=== PATIENT | female | born 1990 | race African-American/Black ===

== ENCOUNTER 2018-12-28 11:24 | Emergency (ER) | payer OTHER ==
[~2018-12-28] VITALS: Ht 162.6 cm; Wt 113.9 kg
--- OUTSIDE RECORDS SUMMARY | 2018-12-28 11:26 | XMS REPORT | Clinical Summary ---
Author Author [facility] Address Unknown Phone Unavailable Care Team Providers Care Diamond Selector Name Role Phone Sharpless PCP Allergies No Known Allergies Medications End Date Status Medication Sig Dispensed Refills Start Date Active escitalopram oxalate Take 20 mg by 0 (LEXAPRO) 20 MG tablet mouth daily. Active albuterol HFA (VENTOLIN Inhale 1 puff 0 HFA) 90 mcg/actuation by mouth via inhaler inhaler every 6 (six) hours as needed for Wheezing. Active montelukast (SINGULAIR) Take 10 mg by 0 10 mg tablet mouth nightly. Active ondansetron (ZOFRAN) 4 MG Take 4 mg by 0 11/28/ tablet mouth every 8 7 (eight) hours as needed. Active levocetirizine (XYZAL) 5 Take 1 tablet 0 12/02/201 MG tablet by mouth 7 daily. Active omeprazole (PRILOSEC) 40 Take 40 mg by 0 01/11/201 MG capsule mouth daily. 7 Active hydrOXYzine (ATARAX) 25 Take 1 tablet 0 MG tablet by mouth daily as needed. Active buPROPion (WELLBUTRIN) Take 100 mg 0 100 MG tablet by mouth 2 (two) times daily. Active pantoprazole (PROTONIX) Take 1 tablet 30 tablet 0 40 MG tablet (40 mg total) 7 by mouth daily. Active Problems Problem Noted Date Cholecystitis 02/01/2017 Obstructive apnea 02/01/2017 Leukemoid reaction 02/01/2017 Extreme obesity 05/15/2015 Allergic rhinitis, seasonal 05/15/2015 Family History Medical History Relation Name Comments Hypertension Father Kidney disease Father Diabetes Maternal Grandfather Diabetes Paternal Grandmother Sickle cell anemia Sister Relation Name Status Comments Father Maternal Grandfather Paternal Grandmother Sister Social History Date Tobacco Use Types Packs/Day Years Used Never Smoker Alcohol Use Drinks/Week oz/Week Comments Yes social drinker Sex Assigned at Date Recorded Not on file Industry Job Start Date Occupation Not on file Not on file Not on file Travel End Travel History Travel Start No recent travel history available. Last Filed Vital Signs Not on file Plan of Treatment Not on file Results Not on fileafter 12/27/2017 Insurance Payer Benefit Subscriber ID Type Phone Address Plan / Group [facility] xxxxxxxxxxxxx [phone] [facility] Advance Directives For more information, please contact: [facility] [address] [place] [address] Date Inactivated Comments Code Status Date Activated 02/02/2017 12:53 PM Full Code 02/01/2017 8:51 PM This code status was determined by: Patient 02/01/2017 8:51 PM Full Code 02/01/2017 6:21 AM This code status was determined by: Patient
--- OUTSIDE RECORDS SUMMARY | 2018-12-28 11:27 | XMS REPORT ---
Author Author [facility] Address Unknown Phone Unavailable Care Team Providers Care Superior Court Clerk Name Role Phone BINDU LOPEZ ALEXANDER Unavailable Unavailable JANELL LEMONS Unavailable Unavailable Messi GUEVARA Unavailable Unavailable ELISHA FISHMAN Unavailable Unavailable Payers Payer Name Policy Type Policy Number Effective Date Expiration Date Problems This patient has no known problems. Allergies, Adverse Reactions, Alerts Allergy Name Allergy Type Status Severity Reaction(s) Onset Date Inactive Date Treating Clinician Comments No Known Allergies DA Active U 2018-06-08 00:00:00 No Known Allergies DA Active U 2015-08-15 00:00:00 Medications This patient has no known medications. Results Test Description Test Time Test Comments Text Results Atomic Results Result Comments URINALYSIS W/ MICROSCOPIC 2017-09-17 13:30:00 COLOR (BEAKER) (test nnni=328) Yellow CLARITY (BEAKER) (test pcxp=567) Slightly Cloudy SPECIFIC GRAVITY UA (BEAKER) (test rwxk=197) 1.020 1.001-1.035 PH UA (BEAKER) (test gwaj=474) 7.0 5.0-8.0 PROTEIN UA (BEAKER) (test doxq=859) Negative Negative GLUCOSE UA (BEAKER) (test yulz=484) Negative Negative KETONES UA (BEAKER) (test dtcj=710) Negative Negative BILIRUBIN UA (BEAKER) (test udhg=136) Negative Negative BLOOD UA (BEAKER) (test evul=890) Negative Negative NITRITE UA (BEAKER) (test dubx=460) Negative Negative LEUKOCYTE ESTERASE UA (BEAKER) (test mpfc=031) Negative Negative UROBILINOGEN UA (BEAKER) (test hskj=629) 0.2 mg/dL 0.2-1.0 BACTERIA (BEAKER) (test dnbk=861) Few RBC UA-MANUAL (BEAKER) (test elvp=5389) <5 /HPF WBC UA-MANUAL (BEAKER) (test yhvg=3454) <5 /HPF SQUAMOUS EPITHELIAL MANUAL (BEAKER) (test pwzj=3808) 10-20 /HPF SOURCE(BEAKER) (test adpc=7050) SCREEN, [id number] 13:26:00* Test Item Value Reference Range Comments TEST URINE (BEAKER) (test xrlj=038) Negative [id number] 09:45:00* Test Item Value Reference Range Comments LIPASE (BEAKER) (test fasw=635) 42 U/L 8-78 COMPREHENSIVE METABOLIC [id number] 09:45:00* Test Item Value Reference Range Comments TOTAL PROTEIN (BEAKER) (test yslp=367) 8.0 gm/dL 6.0-8.5 ALBUMIN (BEAKER) (test wvpk=9057) 4.1 g/dL 3.5-5.0 ALKALINE PHOSPHATASE (BEAKER) (test mcjl=763) 97 U/L 30-115 BILIRUBIN TOTAL (BEAKER) (test zxyo=031) 0.6 mg/dL 0.1-1.3 SODIUM (BEAKER) (test iocv=557) 140 meq/L 135-148 POTASSIUM (BEAKER) (test mirn=943) 4.2 meq/L 3.5-5.5 CHLORIDE (BEAKER) (test kupm=240) 107 meq/L 98-106 CO2 (BEAKER) (test ycuz=994) 23 meq/L 20-31 BLOOD UREA NITROGEN (BEAKER) (test xqsn=824) 10 mg/dL 10-26 CREATININE (BEAKER) (test vkmj=221) 1.21 mg/dL 0.50-1.20 GLUCOSE RANDOM (BEAKER) (test oruv=129) 89 mg/dL 70-110 CALCIUM (BEAKER) (test benf=248) 9.5 mg/dL 8.5-10.5 AST (SGOT) (BEAKER) (test jvcn=937) 18 U/L 5-40 ALT (SGPT) (BEAKER) (test tsqf=660) 18 U/L 6-50 EGFR (BEAKER) (test yeip=9651) 64 mL/min/1.73 sq m ESTIMATED GFR IS NOT ACCURATE CREATININE CLEARANCE IN PREDICTING GLOMERULAR FILTRATION RATE. ESTIMATED GFR IS NOT APPLICABLE FOR DIALYSIS PATIENTS. CBC W/PLT COUNT & AUTO [id number] 09:26:00* Test Item Value Reference Range Comments WHITE BLOOD CELL COUNT (BEAKER) (test xlho=687) 11.5 K/ L 4.0-10.0 RED BLOOD CELL COUNT (BEAKER) (test jdts=378) 6.13 M/ L 4.00-5.00 HEMOGLOBIN (BEAKER) (test nqcj=372) 12.4 GM/DL 12.0-15.0 HEMATOCRIT (BEAKER) (test irdb=347) 39.7 % 36.0-45.0 MEAN CORPUSCULAR VOLUME (BEAKER) (test qswu=483) 64.7 fL 82.0-99.0 MEAN CORPUSCULAR HEMOGLOBIN (BEAKER) (test wwvm=252) 20.2 pg 27.0-33.0 MEAN CORPUSCULAR HEMOGLOBIN CONC (BEAKER) (test bpom=401) 31.2 GM/DL 32.0-36.0 RED CELL DISTRIBUTION WIDTH (BEAKER) (test mszo=815) 16.6 % 12.0-15.0 PLATELET COUNT (BEAKER) (test qfjr=340) 271 K/CU MM 150-430 MEAN PLATELET VOLUME (BEAKER) (test dwst=047) 8.4 fL 6.5-10.5 NUCLEATED RED BLOOD CELLS (BEAKER) (test hphz=753) 0 /100 WBC 0-0 NEUTROPHILS RELATIVE PERCENT (BEAKER) (test ersn=150) 69 % LYMPHOCYTES RELATIVE PERCENT (BEAKER) (test davd=025) 22 % MONOCYTES RELATIVE PERCENT (BEAKER) (test bmej=790) 5 % EOSINOPHILS RELATIVE PERCENT (BEAKER) (test mdty=965) 3 % BASOPHILS RELATIVE PERCENT (BEAKER) (test khfg=832) 0 % NEUTROPHILS ABSOLUTE COUNT (BEAKER) (test sows=932) 8.00 K/ L 1.80-8.00 LYMPHOCYTES ABSOLUTE COUNT (BEAKER) (test ybwx=603) 2.50 K/ L 1.48-4.50 MONOCYTES ABSOLUTE COUNT (BEAKER) (test fuwf=525) 0.60 K/ L 0.00-1.30 EOSINOPHILS ABSOLUTE COUNT (BEAKER) (test ynnk=445) 0.40 K/ L 0.00-0.50 BASOPHILS ABSOLUTE COUNT (BEAKER) (test bsds=424) 0.00 K/ L 0.00-0.20 URINALYSIS W/ [id number] 09:07:00* Test Item Value Reference Range Comments COLOR (BEAKER) (test ikbw=067) Yellow CLARITY (BEAKER) (test xfeh=536) Cloudy SPECIFIC GRAVITY UA (BEAKER) (test stom=903) 1.025 1.001-1.035 PH UA (BEAKER) (test lrch=099) 5.0 5.0-8.0 PROTEIN UA (BEAKER) (test ywny=129) 30 mg/dL Negative GLUCOSE UA (BEAKER) (test sovn=316) Negative Negative KETONES UA (BEAKER) (test intr=600) Negative Negative BILIRUBIN UA (BEAKER) (test qtsl=547) Negative Negative BLOOD UA (BEAKER) (test webv=690) Negative Negative NITRITE UA (BEAKER) (test nbjn=983) Negative Negative LEUKOCYTE ESTERASE UA (BEAKER) (test hgpg=954) Moderate Negative UROBILINOGEN UA (BEAKER) (test alxk=565) < mg/dL 0.2-1.0 RBC UA (BEAKER) (test cjrs=790) 1 /HPF WBC UA (BEAKER) (test zbch=117) 5 /HPF BACTERIA (BEAKER) (test sqdf=508) Rare MUCUS (BEAKER) (test nfcm=4912) Moderate SQUAMOUS EPITHELIAL (BEAKER) (test pxtc=228) 25 /HPF SOURCE(BEAKER) (test jqsk=3326) SCREEN, [id number] 09:04:00* Test Item Value Reference Range Comments TEST URINE (BEAKER) (test hfzy=551) Negative CT, [id number] 01:40:00Reason for exam:->ABDOMINAL PAINabd pain x 1 weekReason for exam:->NAUSEAReason for exam:->EMESISReason for exam:-> HEMATEMESISReason for exam:->DIZZINESSIs the patient ?->NoWhat is the patient's sedation requirement?->No SedationFINAL REPORT EXAMINATION: CT SCAN OF THE ABDOMEN AND PELVIS CLINICAL HISTORY:Hematemesis, nausea COMPARISON EXAM: None TECHNIQUE: Following the administration of IV contrast, axial tomographic images were acquired through the abdomen and pelvis. Postprocessing was performed and coronal and sagittal reformatted images were created and reviewed. The exam was performed according to our departmental dose optimization program which includes automated exposure control, adjustment of the mA and/or kV according to patient's size and/or use of iterative reconstructive technique. FINDINGS: The heart size is normal. No evidence of a pericardial or pleural effusion. The lung bases are clear. The distal esophagus is decompressed. The gallbladder is absent. No evidence of pathologic biliary dilatation. The liver, spleen, pancreas, adrenal glands and the kidneys are unremarkable. Small calcifications are noted in the pelvis. Although vascular phleboliths are favored, evaluation for a nonobstructing distal right ureteral calculus is limited secondary to the absence of contrast in the distal right ureter. The stomach is decompressed. Segments of both the small bowel and colon demonstrate mild wall thickening. Although a component may reflect incomplete distention, an enteritis and/or colitis should also be considered. A tubular fluid-filled structure is noted just caudal to the cecum which may reflect a de compressed loop of small bowel. However, a dilated fluid-filled possibly inflame d appendix should also be considered. Further characterization of the bowel incl uding the appendix is limited by the absence of enteric contrast. No evidence of pneumatosis or pneumoperitoneum. There is subtle infiltration of the mesentery including near the cecum. Numerous small lymph nodes are also noted throughout t he mesentery as well as within the retroperitoneum. Clustered small nonspecific lymph nodes are also noted in the inguinal regions. The aorta is normal in calib er. Contrast also opacifies the portal venous system, mesenteric vessels, renal vessels, IVC and the iliac vessels. Query a small 2.5 cm right ovarian cyst, lik kiko physiologic. The left ovary, uterus and bladder are unremarkable. No signifi cant intra-abdominal free fluid. No evidence of an acute osseous abnormality. Ge nerative changes are noted in the lumbar spine, most pronounced at L4-L5 with lo ss of disc space height, osteophytosis, subchondral sclerosis a mild circumferen tial disc bulge and facet hypertrophy. IMPRESSION: Tubular fluid-filled struct ure near the cecal tip. Decompressed loop of small bowel versus a dilated possib ly inflamed appendix. Repeat CT imaging with enteric contrast would be beneficia l in further characterization if clinically appropriate. Segmental wall thickeni ng of both the small bowel and colon. Although a component may reflect incomplet e distention, an enteritis and/or colitis should also be considered. Infection a s well as inflammatory bowel disease would be the differential diagnosis. Yvonne us small nonspecific mesenteric, retroperitoneal and inguinal lymph nodes. Resul ts, limitations and recommendations discussed with Dr. Guevara. Signed: Indira Galarza MDReport Verified Date/Time: 04/24/2017 01:40:51 Reading Location: [facility] C0[facility] Transitional Reading Room W/PLT COUNT & AUTO [id number] 23:26:00 * Test Item Value Reference Range Comments WHITE BLOOD CELL COUNT (BEAKER) (test matk=466) 13.3 K/ L 4.0-10.0 RED BLOOD CELL COUNT (BEAKER) (test ihwn=497) 5.32 M/ L 4.00-5.00 HEMOGLOBIN (BEAKER) (test mggz=951) 11.1 GM/DL 12.0-15.0 HEMATOCRIT (BEAKER) (test neyl=076) 33.2 % 36.0-45.0 MEAN CORPUSCULAR VOLUME (BEAKER) (test klsz=902) 62.4 fL 82.0-99.0 MEAN CORPUSCULAR HEMOGLOBIN (BEAKER) (test teoy=526) 20.9 pg 27.0-33.0 MEAN CORPUSCULAR HEMOGLOBIN CONC (BEAKER) (test aurt=562) 33.4 GM/DL 32.0-36.0 RED CELL DISTRIBUTION WIDTH (BEAKER) (test meba=080) 16.0 % 10.3-14.2 PLATELET COUNT (BEAKER) (test zajv=253) 333 K/CU MM 150-430 MEAN PLATELET VOLUME (BEAKER) (test cjna=873) 9.5 fL 6.5-10.5 NUCLEATED RED BLOOD CELLS (BEAKER) (test sziw=007) 0 /100 WBC 0-0 NEUTROPHILS RELATIVE PERCENT (BEAKER) (test vgwa=846) 61 % LYMPHOCYTES RELATIVE PERCENT (BEAKER) (test djrs=375) 28 % MONOCYTES RELATIVE PERCENT (BEAKER) (test xdli=033) 7 % EOSINOPHILS RELATIVE PERCENT (BEAKER) (test wqig=885) 4 % BASOPHILS RELATIVE PERCENT (BEAKER) (test egni=003) 0 % NEUTROPHILS ABSOLUTE COUNT (BEAKER) (test pgyt=798) 8.06 K/ L 1.80-8.00 LYMPHOCYTES ABSOLUTE COUNT (BEAKER) (test uhzx=729) 3.72 K/ L 1.48-4.50 MONOCYTES ABSOLUTE COUNT (BEAKER) (test nlon=338) 0.89 K/ L 0.00-1.30 EOSINOPHILS ABSOLUTE COUNT (BEAKER) (test zoyq=858) 0.58 K/ L 0.00-0.50 BASOPHILS ABSOLUTE COUNT (BEAKER) (test iqhy=834) 0.05 K/ L 0.00-0.20 (MANUAL DIFFERENTIAL)2017-04-23 23:26:00* Test Item Value Reference Range Comments TOTAL COUNTED (BEAKER) (test xxvy=3200) WBC MORPHOLOGY (BEAKER) (test fprl=046) Normal LARGE PLT(BEAKER) (test yuam=4565) Present ANISOCYTOSIS (BEAKER) (test gjlz=702) 1+ few HYPOCHROMIA (BEAKER) (test foec=300) 1+ few MICROCYTES (BEAKER) (test wduh=505) 2+ moderate POLYCHROMATOPHILLIC RBCS(BEAKER) (test vkke=432) 1+ few [id number] 23:24:00* Test Item Value Reference Range Comments MAGNESIUM (BEAKER) (test jprk=919) 2.1 mg/dL 1.5-3.0 Specimen slightly hemolyzed COMPREHENSIVE METABOLIC [id number] 23:24:00* Test Item Value Reference Range Comments TOTAL PROTEIN (BEAKER) (test tctg=960) 7.6 gm/dL 6.0-8.5 Specimen slightly hemolyzed ALBUMIN (BEAKER) (test qygs=2161) 3.7 g/dL 3.5-5.0 Specimen slightly hemolyzed ALKALINE PHOSPHATASE (BEAKER) (test rjto=894) 97 U/L 30-115 BILIRUBIN TOTAL (BEAKER) (test atvl=029) 0.8 mg/dL 0.1-1.2 Specimen slightly hemolyzed SODIUM (BEAKER) (test wgzy=636) 138 meq/L 135-148 POTASSIUM (BEAKER) (test mcut=482) 3.9 meq/L 3.6-5.5 Specimen slightly hemolyzed CHLORIDE (BEAKER) (test pzqk=142) 104 meq/L 98-106 CO2 (BEAKER) (test yrwf=017) 21 meq/L 20-29 BLOOD UREA NITROGEN (BEAKER) (test dqjj=921) 10 mg/dL 10-26 CREATININE (BEAKER) (test zxhv=111) 0.92 mg/dL 0.50-1.20 Specimen slightly hemolyzed GLUCOSE RANDOM (BEAKER) (test xezj=817) 80 mg/dL 70-110 CALCIUM (BEAKER) (test elwg=247) 9.0 mg/dL 8.5-10.5 AST (SGOT) (BEAKER) (test kfzj=266) 26 U/L 5-40 Specimen slightly hemolyzed ALT (SGPT) (BEAKER) (test mljk=629) 31 U/L 5-50 Specimen slightly hemolyzed EGFR (BEAKER) (test ejfp=1828) 87 mL/min/1.73 sq m ESTIMATED GFR IS NOT ACCURATE CREATININE CLEARANCE IN PREDICTING GLOMERULAR FILTRATION RATE. ESTIMATED GFR IS NOT APPLICABLE FOR DIALYSIS PATIENTS. [id number] 23:24:00* Test Item Value Reference Range Comments LIPASE (BEAKER) (test hmuc=877) 31 U/L 6-51 URINALYSIS WITH MICROSCOPIC IF [id number] 23:12:00* Test Item Value Reference Range Comments COLOR (BEAKER) (test mpyy=589) Yellow CLARITY (BEAKER) (test akkl=069) Clear SPECIFIC GRAVITY UA (BEAKER) (test owgp=535) 1.020 1.001-1.035 PH UA (BEAKER) (test qgpx=228) 6.0 5.0-8.0 PROTEIN UA (BEAKER) (test hwkc=539) Negative Negative GLUCOSE UA (BEAKER) (test tvrv=801) Negative Negative KETONES UA (BEAKER) (test iyai=416) Trace Negative BILIRUBIN UA (BEAKER) (test tanb=251) Negative Negative BLOOD UA (BEAKER) (test mdel=545) Negative Negative NITRITE UA (BEAKER) (test dacg=115) Negative Negative LEUKOCYTE ESTERASE UA (BEAKER) (test qkho=831) Trace Negative UROBILINOGEN UA (BEAKER) (test rrri=585) 0.2 mg/dL 0.2-1.0 SOURCE(BEAKER) (test gukj=8667) SCREEN, [id number] 23:11:00* Test Item Value Reference Range Comments TEST URINE (BEAKER) (test bwze=809) Negative URINALYSIS [id number] 23:11:00* Test Item Value Reference Range Comments RBC UA-MANUAL (BEAKER) (test mrpz=2438) <5 /HPF WBC UA-MANUAL (BEAKER) (test zyxz=2456) <5 /HPF BACTERIA (BEAKER) (test yhae=068) Few SQUAMOUS EPITHELIAL MANUAL (BEAKER) (test smlk=8886) 5-10 /HPF BLOOD [id number] 12:00:00* Test Item Value Reference Range Comments CULTURE (BEAKER) (test tczk=4148) No growth in 5 days BLOOD [id number] 12:00:00* Test Item Value Reference Range Comments CULTURE (BEAKER) (test akqg=0716) No growth in 5 days TISSUE [id number] 20:27:00Surgical Pathology Report Case: [id number] Authorizing Provider: Khadijah Juan Collected: 02/01/2017 1831 [facility] Received: 02/02/2017 1034 SERVICES Pathologist: Brett Morocho MD Specimen: Gallbladder A. GALLBLADDER, LAPAROSCOPIC CHOLECYSTECTOMY: - CHRONIC CHOLECYSTITIS - CHOLELITHIASIS - NEGATIVE FOR DYSPLASIA AND MALIGNANCY [id number] paperwork, container, and cassettes are all labeled [id number]. The specimen is received in formalin in a single container labeled patient's name (GERDA) and medical record number. A. The specimen labeled "gallbladder" consists of a 9.5 x 4.5 x 4.3 cm gallbladder. The serosa is cheney-green and smooth, without identifiable lesions. The cystic duct margin is inked black. The specimen is opened to reveal approximately 20 mL of viscous green bile with a single yellow-green, smooth, oval gallstone (1.9 cm). The gallbladder mucosa is dark green and smooth, without identifiable lesions. The gallbladder wall measures up to 0.1 cm thick. Firmware Software Verification Engineer sections are submitted in a single cassette as follows: A1: Cystic duct margin, gallbladder neck and bodyMicroscopic examination is performed and is incorporated in the diagnostic line.[facility], Department of Pathology, [place] [address], [facility], Department of Pathology, [address] [place] [address], [facility], Department of Pathology, [place] [address], SCREEN, [id number] 14:25:00* Test Item Value Reference Range Comments TEST URINE (BEAKER) (test tmqd=662) Negative CBC W/PLT COUNT & AUTO [id number] 06:21:00* Test Item Value Reference Range Comments WHITE BLOOD CELL COUNT (BEAKER) (test phqh=140) 12.6 K/ L 4.0-10.0 RED BLOOD CELL COUNT (BEAKER) (test qtyb=141) 5.90 M/ L 4.00-5.00 HEMOGLOBIN (BEAKER) (test dyju=124) 12.5 GM/DL 12.0-15.0 HEMATOCRIT (BEAKER) (test clfq=510) 37.4 % 36.0-45.0 MEAN CORPUSCULAR VOLUME (BEAKER) (test owbs=348) 63.4 fL 82.0-99.0 MEAN CORPUSCULAR HEMOGLOBIN (BEAKER) (test mjwi=038) 21.2 pg 27.0-33.0 MEAN CORPUSCULAR HEMOGLOBIN CONC (BEAKER) (test bnoe=359) 33.4 GM/DL 32.0-36.0 RED CELL DISTRIBUTION WIDTH (BEAKER) (test ezkz=730) 16.7 % 10.3-14.2 PLATELET COUNT (BEAKER) (test gysu=117) 283 K/CU MM 150-430 MEAN PLATELET VOLUME (BEAKER) (test azod=569) 10.0 fL 6.5-10.5 NUCLEATED RED BLOOD CELLS (BEAKER) (test bopn=085) 0 /100 WBC 0-0 NEUTROPHILS RELATIVE PERCENT (BEAKER) (test fggp=642) 56 % LYMPHOCYTES RELATIVE PERCENT (BEAKER) (test batu=804) 35 % MONOCYTES RELATIVE PERCENT (BEAKER) (test dtcg=157) 6 % EOSINOPHILS RELATIVE PERCENT (BEAKER) (test iqlg=993) 3 % BASOPHILS RELATIVE PERCENT (BEAKER) (test vorr=196) 0 % NEUTROPHILS ABSOLUTE COUNT (BEAKER) (test vmsx=633) 7.05 K/ L 1.80-8.00 LYMPHOCYTES ABSOLUTE COUNT (BEAKER) (test hlqw=609) 4.37 K/ L 1.48-4.50 MONOCYTES ABSOLUTE COUNT (BEAKER) (test hvzm=481) 0.75 K/ L 0.00-1.30 EOSINOPHILS ABSOLUTE COUNT (BEAKER) (test ayku=456) 0.38 K/ L 0.00-0.50 BASOPHILS ABSOLUTE COUNT (BEAKER) (test aews=437) 0.05 K/ L 0.00-0.20 (MANUAL DIFFERENTIAL)2017-02-01 06:21:00* Test Item Value Reference Range Comments TOTAL COUNTED (BEAKER) (test lcnq=3710) WBC MORPHOLOGY (BEAKER) (test eikp=783) Normal PLT MORPHOLOGY (BEAKER) (test vrdw=935) Normal ANISOCYTOSIS (BEAKER) (test umak=941) 1+ few MICROCYTES (BEAKER) (test yfbl=986) 2+ moderate OVALOCYTES (BEAKER) (test ghhr=569) 1+ few POLYCHROMATOPHILLIC RBCS(BEAKER) (test utys=443) 1+ few COMPREHENSIVE METABOLIC [id number] 05:52:00* Test Item Value Reference Range Comments TOTAL PROTEIN (BEAKER) (test hpuf=827) 7.5 gm/dL 6.0-8.5 ALBUMIN (BEAKER) (test akte=6630) 3.8 g/dL 3.5-5.0 ALKALINE PHOSPHATASE (BEAKER) (test yyuy=698) 84 U/L 30-115 BILIRUBIN TOTAL (BEAKER) (test hxbf=492) 0.6 mg/dL 0.1-1.2 SODIUM (BEAKER) (test qzpo=706) 141 meq/L 135-148 POTASSIUM (BEAKER) (test pdfc=815) 3.8 meq/L 3.6-5.5 CHLORIDE (BEAKER) (test izqb=640) 108 meq/L 98-106 CO2 (BEAKER) (test ldid=444) 23 meq/L 20-29 BLOOD UREA NITROGEN (BEAKER) (test evyf=582) 9 mg/dL 10-26 CREATININE (BEAKER) (test hpzm=488) 1.03 mg/dL 0.50-1.20 GLUCOSE RANDOM (BEAKER) (test gecx=407) 77 mg/dL 70-110 CALCIUM (BEAKER) (test tkec=030) 8.8 mg/dL 8.5-10.5 AST (SGOT) (BEAKER) (test pwwq=583) 20 U/L 5-40 ALT (SGPT) (BEAKER) (test jjkp=749) 21 U/L 5-50 EGFR (BEAKER) (test sjio=0034) 77 mL/min/1.73 sq m ESTIMATED GFR IS NOT ACCURATE CREATININE CLEARANCE IN PREDICTING GLOMERULAR FILTRATION RATE. ESTIMATED GFR IS NOT APPLICABLE FOR DIALYSIS PATIENTS.
[2018-12-28] MEDS ORDERED: SODIUM CHLORIDE 0.9% 1000ML 1,000 ML IV STA (11:44)
[2018-12-28] MEDS ORDERED: SODIUM CHLORIDE 0.9% 1000ML 1,000 ML IV SCH (11:45)
[2018-12-28 12:24] LABS: BASOPHILS # (AUTO) 0.1 (0.0-0.1); BASOPHILS % 0.9 % (0.0-1.0); EOSINOPHILS # (AUTO) 0.2 (0.0-0.4); EOSINOPHILS % 2.8 % (0.0-6.0); HEMATOCRIT 40.2 % (34.2-44.1); HEMOGLOBIN 12.2 g/dL (12.0-16.0); LYMPHOCYTES # (AUTO) 2.5 (1.0-3.2); LYMPHOCYTES % 33.2 % (18.0-39.1); MEAN CORPUSCULAR HEMOGLOBIN 19.2 pg (28-32); MEAN CORPUSCULAR HGB CONC 30.3 g/dL (31-35); MEAN CORPUSCULAR VOLUME 63.3 fL (81-99); MONOCYTES # (AUTO) 0.6 (0.2-0.8); MONOCYTES % 8.5 % (4.4-11.3); NEUTROPHILS # (AUTO) 4.1 (2.1-6.9); NEUTROPHILS % 54.3 % (38.7-80.0); PLATELET COUNT 366 x10e3/uL (140-360); RED BLOOD COUNT 6.35 x10e6/uL (3.6-5.1); RED CELL DISTRIBUTION WIDTH 17.8 % (11.7-14.4)
[2018-12-28 12:28] LABS: BILIRUBIN,URINE 2+ (NEGATIVE); CLARITY,URINE SL CLOUDY (CLEAR); COLOR,URINE YELLOW (YELLOW); KETONES,URINE TRACE (NEGATIVE); LEUKOCYTE ESTERASE ,URINE 2+ (NEGATIVE); NITRITE,URINE NEGATIVE (NEGATIVE); PROTEIN,URINE DIPSTICK 1+ (NEGATIVE); URINE UROBILINOGEN 0.2 mg/dL (0.2 - 1)
[2018-12-28 12:29] LABS: PREGNANCY TEST, URINE NEGATIVE (NEGATIVE)
[2018-12-28 12:38] LABS: CREATINE KINASE 120 IU/L (29-168)
[2018-12-28 12:45] LABS: WBC,URINE (MAN) >50 /HPF (0-5)
[2018-12-28 12:46] LABS: RBC,URINE 0-5 /HPF (0-5)
[2018-12-28 12:47] LABS: BACTERIA,URINE MODERATE /HPF; EPITHELIAL CELLS,URINE MANY /LPF; TRICHOMONAS,URINE MODERATE
--- NOTE | 2018-12-28 13:18 | Diagnostic Imaging Report ---
EXAM: CHEST SINGLE (PORTABLE) DATE: 12/28/2018 11:44 AM INDICATION: Asthma ^ERMD ORDER ^[id number] ^1253 ^Y COMPARISON: None FINDINGS: Lines and tubes: None Heart size normal. No focal pulmonary opacity, pleural effusion or pneumothorax. Upper abdomen unremarkable. No acute bony abnormality. IMPRESSION: No evidence for acute disease. Signed by: Dr. Nik Zhou M.D. on 12/28/2018 1:15 PM
[2018-12-28] MEDS ORDERED: CEFTRIAXONE SOD 1 GM/NS 50 ML 50 ML IV ONE (13:45)
[2018-12-28] MEDS ORDERED: KEFLEX500 MG PO (14:01)
[2018-12-28 14:09] LABS: ALBUMIN 3.2 g/dL (3.5-5.0); ALBUMIN/GLOBULIN RATIO 0.9 (0.8-2.0); ANION GAP 10.5 mmol/L (8-16); CALCIUM 9.3 mg/dL (8.4-10.2); CREATININE, SERUM 1.21 mg/dL (0.57-1.11); POTASSIUM 3.5 mmol/L (3.5-5.1)
[2018-12-28] MEDS ORDERED: REGLAN10 MG PO (14:19)
[2018-12-28] MEDS ORDERED: PYRIDIUM100 MG PO (14:19)
[2018-12-28] MEDS ORDERED: ONDANSETRON HCL INJ 2MG/ML 2ML 2 MG/ML VIAL IV ONE (14:24)
== END 2018-12-28 15:09 | disposition home or self-care (01) ==
LOC: ER 11:24
DX: E86.0 Dehydration (principal)
CPT/HCPCS: 36415; 71045; 80053; 81001; 81025; 82150; 82550; 82553; 83690; 84484; 85025; 99284; J0696; J2405; J7030